=== PATIENT | female | born 2000 | race Caucasian/White ===

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

== ENCOUNTER 2021-01-10 07:56 | Outpatient (CLI) | payer OTHER | END 2021-01-10 07:57 | disposition home or self-care (01) | LOC: NM 07:56 | PROVIDERS: ATTEND Internal Medicine Gastroenterology | DX: R10.9 Unspecified abdominal pain (principal) | CPT/HCPCS: 78227; A9537 ==